=== PATIENT | male | born 1990 | race African-American/Black ===

== ENCOUNTER → 2018-06-25 20:02 | Emergency (ER) | payer OTHER ==
[~2018-06-25 20:02] MED LIST: Bupivacaine 0.5% W/EPI SDV* 10 ML VIAL INJ ONE; Bupivacaine 0.5% W/EPI SDV* 30 ML VIAL ONE; Lidocaine 2% EPI 1:200000 MPF* 10 ML VIAL INJ ONE; Lidocaine 2% EPI 1:200000 MPF*10-20 ML VIAL ONE
--- NOTE | 2018-06-25 20:11 | ED ---
Upper Extremity Pain - HPI Summary HPI Summary: A 28 y/o M inmate brought in by ambulance presents to ED with c/o lacerations to RLE onset this evening [employer]. Pt was self-harming and cut lacs to his R forearm and R elbow. Correctional staff stated it was "squirting" out prior to arrival. Patient arrives with lacs bandaged. Associated sx: dizziness. PMHx: DM , schizophrenia per nurse's note. Nurse's note also states patient states he has a razor blade in his rectum. - History of Current Complaint Stated Complaint: "ARM LAC" PER EM Time Seen by Provider: 06/25/18 20:06 Hx Obtained From: Patient Onset/Duration: Still Present Timing: Constant Severity Initially: Severe Severity Currently: Severe - 8 out of 10 Pain Location: Arm, Elbow Associated Signs & Symptoms: Positive: Other - pos: dizziness - Allergies/Home Medications Allergies/Adverse Reactions: Allergies Allergy/AdvReac Type Severity Reaction Status Date / Time No Known Allergies Allergy Verified 06/25/18 20:15 Home Medications: Home Medications NK [No Home Medications Reported] 06/25/18 [History Confirmed 06/25/18] PMH/Surg Hx/FS Hx/Imm Hx Previously Healthy: No Endocrine/Hematology History: Reports: Hx Diabetes Sensory History: Denies: Hx Legally Blind, Hx Deafness Opthamlomology History: Denies: Hx Legally Blind EENT History: Denies: Hx Deafness Neurological History: Denies: Hx Dementia Psychiatric History: Reports: Hx Schizophrenia - Family History Known Family History: Positive: Unknown - Social History Occupation: Unemployed Lives: Dormitory/Roommates - inmate Review of Systems Skin: Other - pos: lac to R forearm and elbow Neurological: Other - pos: dizziness All Other Systems Reviewed And Are Negative: Yes Physical Exam - Summary Physical Exam Summary: Appearance: Well-appearing, Well-nourished, lying in bed comfortable Skin: Warm, dry, no obvious rash. Multiple superficial lacs to R forearm and R antecubital space. Eyes: sclera anicteric, no conjunctival pallor ENT: mucous membranes moist Neck: deferred Respiratory: No signs of respiratory distress Cardiovascular: Appears well perfused, pulses are nml Abdomen: deferred Musculoskeletal: Moving all 4 extremities without obvious discomfort Neurological: Awake and alert, mentation is normal, speech is fluent and appropriate Psychiatric: affect is normal, does not appear anxious or depressed Triage Information Reviewed: Yes Vital Signs Reviewed: Yes Procedures - Procedure Summary Procedure Summary: Four lacerations repaired: Each was 2.5cm except the R antecubital fossa which was 3.5 cm. 5-0 nylon sutures used. Simple running stitch. Linear lacs, uncontaminated. Diagnostics - Laboratory Lab Statement: Any lab studies that have been ordered have been reviewed, and results considered in the medical decision making process. - Radiology ABD XR Radiology Interpretation Completed By: ED Physician, Radiologist Summary of Radiographic Findings: No radio-opaque foreign body. Course/Dx - Course Course Of Treatment: Pt is a 28 y/o M inmate presenting with self-inflected lacerations to RLE onset this evening. Limited PE found multiple superficial lacs to R forearm and R antecubital space. Report states pt placed saran wrapped razor blade into his rectum, will order abd XR. X rays failed to show any metallic FB in the metallic foreign body. Apparently the patient was not being truthful about inserting the razor in his rectum. After being informed of this the patient began chuckling. He will be discharged with wound care instructions to [facility]. Four lacerations repaired: Each was 2.5cm except the R antecubital fossa which was 3.5 cm. 5-0 nylon sutures used. Simple running stitch. Linear lacs, uncontaminated. ABD XR shows noradio-opaque foreign body. Pt will be discharged home. - Diagnoses Differential Diagnosis/HQI/PQRI: Positive: Laceration, Other - Rectal foreign body Provider Diagnoses: Laceration of right forearm without complication Discharge - Sign-Out/Discharge Documenting (check all that apply): Patient Departure - DC Patient Received Moderate/Deep Sedation with Procedure: No - Discharge Plan Condition: Improved Disposition: HOME Patient Education Materials: Care For Your Stitches (ED) Additional Instructions: The xrays failed to show any razorblade in the rectum - Billing Disposition and Condition Condition: IMPROVED Disposition: Home - Attestation Statements Document Initiated by Scribe: Yes Documenting Scribe: Fidelia Hanks Provider For Whom Scribe is Documenting (Include Credential): Dr. Isaak Petit MD Scribe Attestation: I, Fidelia Hanks, scribed for Dr. Isaak Petit MD on 06/25/18 at 2142. Scribe Documentation Reviewed: Yes Provider Attestation: The documentation as recorded by the scribe, Fidelia Hanks accurately reflects the service I personally performed and the decisions made by me, Dr. Isaak Petit MD Status of Scribe Document: Viewed
[2018-06-25 22:01] VITALS: BP 138/93
== END | disposition home or self-care (01) ==
LOC: ED 20:02
DX: S51.811A Laceration without foreign body of right forearm, initial encounter (principal); S51.011A Laceration without foreign body of right elbow, initial encounter; X78.9XXA Intentional self-harm by unspecified sharp object, initial encounter; Y92.149 Unspecified place in prison as the place of occurrence of the external cause; R42 Dizziness and giddiness; E11.9 Type 2 diabetes mellitus without complications; F20.9 Schizophrenia, unspecified
CPT/HCPCS: 12005; 36415; 74019; 86703; 99282